=== PATIENT | female | born 1980 | race Caucasian/White ===

== ENCOUNTER 2017-12-16 08:26 | Emergency (ER) | payer SELFPAY ==
--- NOTE | 2017-12-16 09:48 | ULT ---
PELVIC ULTRASOUND: History: 37-year-old with left lower quadrant pain and bleeding after intercourse. Technique: Multiple longitudinal and transverse images of the pelvis were obtained using a multihertz curvilinear transabdominal as well as multihertz endovaginal transducers. Real-time, color flow, and spectral waveform doppler analysis was used to evaluate the pelvis. FINDINGS: The uterus is of normal contour, axis, and size measuring 8.3 x 4.0 x 6.9 cm. The endometrium is doub le wall thickness of approximately 8 mm. No evidence of uterine mass is seen. Both ovaries visualized with good blood flow. Right ovary measures 4.0 x 3.2 x 2.0 cm and the left ov diego measures 1.9 x 2.8 x 1.5 cm. No evidence of pelvic masses or lesions seen. IMPRESSION: Normal pelvic ultrasound. POS: JOVI
[2017-12-16 10:06] LABS: Bilirubin Small (Negative); Blood, Urine Large (Negative); Clarity CLEAR (Clear); Glucose, Urine (Dipstick) Negative (Negative); Leukocyte Small (Negative); Nitrite Negative (Negative); Protein, Urine (Dipstick) 100 mg/dL (Neg-Trace); Specific Gravity, Urine 1.031 (1.002-1.036); pH, Urine 5.5 (5.0-9.0)
[2017-12-16 10:08] LABS: Bacteria/HPF None Seen HPF (None Seen); Hyaline Casts/LPF 0-3 HYALINE CAST LPF (0-3 Hyaline); RBC/HPF GREATER THAN 50-TNTC HPF (0-3); Squamous Epithelial None Seen HPF (0-3); WBC/HPF None Seen HPF (0-3)
[2017-12-16 10:12] LABS: Pregnancy Test - Urine (BHCG) Negative (Negative); Pregu Control Background? CLEAR/WHITE (CLR/WHITE); Pregu Control Bar Appear? YES (CONTROL BAR); Specific Gravity 1.031 (1.002-1.036)
== END 2017-12-16 14:20 | disposition home or self-care (01) ==
LOC: ERS 08:26
DX: N93.8 Other specified abnormal uterine and vaginal bleeding (principal)
CPT/HCPCS: 76856; 81003; 81015; 81025; 87480; 87491; 87510; 87591; 87660

== ENCOUNTER 2018-10-05 22:42 | Emergency (ER) | payer SELFPAY ==
[2018-10-06 00:02] LABS: Pregnancy Test - Urine (BHCG) Negative (Negative); Pregu Control Background? CLEAR/WHITE (CLR/WHITE); Pregu Control Bar Appear? YES (CONTROL BAR)
[2018-10-06 00:31] LABS: Mean Corpuscular HGB CONC 30.1 g/dL (32.0-36.0); Mean Corpuscular Hemoglobin 21.9 pg (27.0-31.0); Mean Corpuscular Volume 72.8 fL (78.0-98.0); Mean Platelet Volume 7.9 fL (7.4-10.4); Platelet Count 268 thou/uL (130-400); RBC Distribution Width 15.5 % (11.5-14.5); Red Blood Cell (RBC) Count 5.03 mill/uL (4.20-5.40)
[2018-10-06 00:37] LABS: #Basophils 0.1 thou/uL (0.0-0.2); #Eosinphils 0.1 thou/uL (0.0-0.7); #Lymphocytes 2.2 thou/uL (1.20-3.40); #Monocytes 0.8 thou/uL (0.11-0.59); #Neutrophils 5.8 thou/uL (1.40-6.50); %Basophils 1.3 % (0.0-1.0); %Eosinophils 1.4 % (0.0-10.0); %Lymphocytes 24.3 % (21.0-51.0); %Monocytes 8.4 % (0.0-10.0); %Neutrophils 64.6 % (42.0-75.0); Anisocytosis SLIGHT = 6-15 cells (100X) (0-5/hpf); MDiff Complete? YES; Microcytosis SLIGHT = 6-15 cells (100X) (0-5/hpf)
[2018-10-06 00:41] LABS: Bilirubin Negative (Negative); Blood, Urine Negative (Negative); Clarity Clear (Clear); Glucose, Urine (Dipstick) Negative (Negative); Leukocyte Negative (Negative); Nitrite Negative (Negative); Protein, Urine (Dipstick) Negative (Neg-Trace); Urobilinogen 0.2 mg/dL (0.2-1.0)
[2018-10-06] MEDS ORDERED: Ketorolac Tromethamine 30 MG/ML VIAL ONE (00:41)
[2018-10-06 00:46] LABS: ALT (SGPT) 12 U/L (8-55); AST (SGOT) 12 U/L (5-34); Albumin 3.9 g/dL (3.5-5.0); Alkaline Phosphatase 80 U/L (40-150); Anion Gap 13 mmol/L (10-20); BUN (Urea Nitrogen) 10 mg/dL (7.0-18.7); Bilirubin, Total 0.3 mg/dL (0.2-1.2); Calc. Creatinine Clearance 0 mL/min (70-130); Carbon Dioxide 24 mmol/L (22-29); Chloride 105 mmol/L (98-107); Estimated GFR-MDRD 83; Glucose 97 mg/dL (70-105); Potassium 3.9 mmol/L (3.5-5.1); Protein, Total 6.9 g/dL (6.0-8.3); Sodium 138 mmol/L (136-145)
--- NOTE | 2018-10-06 07:45 | CT ---
CT ABDOMEN AND PELVIS NONCONTRAST CT RENAL CALCULUS PROTOCOL: COMPARISON: No prior imaging comparison. INDICATION: Left back pain, urinary symptoms. FINDINGS: No urolithiasis or obstructive uropathy. The urinary bladder is decompressed limiting visualization. There is a moderate-sized left hemipelvic mass, likely arising from the left adnexa. This is incom pletely evaluated. There is limited evaluation of the solid abdominal organs, bowel, lymph nodes, an d vascular on the basis of noncontrast technique. There is no free air or significant ascites. Ther e is trace free pelvic fluid. Visualized lung bases are clear. No acute osseous pathology is visual ized. IMPRESSION: 1. No urolithiasis or obstructive uropathy. 2. Moderate-sized left hemipelvic mass which may arise from the left adnexa, incompletely assessed. Given left-sided pain, this may be further assessed with pelvic ultrasound as necessary. Telephone call with findings placed to the ER physician at the time of dictation 0008 hours, 9. CODE CR
--- NOTE | 2018-10-06 08:20 | ULT ---
PELVIC ULTRASOUND WITH SANTIZO SCALE AND DOPPLER COLOR FLOW IMAGING TRANSABDOMINAL AND TRANSVAGINAL PELVIC ULTRASOUND PERFORMED: INDICATION: Low back pain. Left adnexal mass. FINDINGS: Doppler evaluation is performed which reveals flow to each ovary. There is no focal uterine patholog y. Endometrium measures 1 cm, which is within normal limits for a premenopausal patient. Correlate clinically in this regard. Within the left adnexa, there is a focus of complex echotexture measuring approximately 2.3 cm in hina meter relative to the finding on preceding CT within the left pelvis. No significant internal flow. There is no free pelvic fluid identified. IMPRESSION: 1. Findings most consistent with a mildly complex left adnexal cyst. Recommend 6-week followup pelv ic ultrasound to confirm expected, physiologic resolution. 2. Otherwise, no significant pathology of the pelvis. CODE T POS: FELY
== END 2018-10-06 01:50 | disposition home or self-care (01) ==
LOC: SCSER 22:42
DX: N83.202 Unspecified ovarian cyst, left side (principal); F31.9 Bipolar disorder, unspecified
CPT/HCPCS: 74176; 76856; 80053; 81003; 81025; 85025; 93976; 96372; J1885

== ENCOUNTER 2019-01-06 13:35 | Emergency (ER) | payer MEDICAID, SELFPAY ==
[2019-01-06] MEDS ORDERED: Ketorolac Tromethamine 30 MG/ML VIAL ONE (14:03)
[2019-01-06 14:06] LABS: Bilirubin Negative (Negative); Blood, Urine Negative (Negative); Clarity Clear (Clear); Glucose, Urine (Dipstick) Negative (Negative); Leukocyte Negative (Negative); Nitrite Negative (Negative); Protein, Urine (Dipstick) Trace mg/dL (Neg-Trace)
[2019-01-06 14:07] LABS: Pregnancy Test - Urine (BHCG) Negative (Negative); Pregu Control Background? CLEAR/WHITE (CLR/WHITE); Pregu Control Bar Appear? YES (CONTROL BAR); Specific Gravity 1.026 (1.002-1.036); Specific Gravity, Urine 1.026 (1.002-1.036)
[2019-01-06 14:27] LABS: Hemoglobin 10.1 g/dL (12.0-16.0); Mean Corpuscular HGB CONC 30.4 g/dL (32.0-36.0); Mean Corpuscular Hemoglobin 22.1 pg (27.0-31.0); Mean Corpuscular Volume 72.7 fL (78.0-98.0); Mean Platelet Volume 6.8 fL (7.4-10.4); Platelet Count 354 thou/uL (130-400); RBC Distribution Width 15.7 % (11.5-14.5); Red Blood Cell (RBC) Count 4.55 mill/uL (4.20-5.40); White Blood Cell (WBC) Count 8.7 thou/uL (4.8-10.8)
[2019-01-06 14:37] LABS: #Basophils 0.1 thou/uL (0.0-0.2); #Eosinphils 0.1 thou/uL (0.0-0.7); #Lymphocytes 1.8 thou/uL (1.20-3.40); #Monocytes 0.5 thou/uL (0.11-0.59); #Neutrophils 6.2 thou/uL (1.40-6.50); %Lymphocytes 21.3 % (21.0-51.0); %Monocytes 5.3 % (0.0-10.0); %Neutrophils 71.4 % (42.0-75.0); Anisocytosis SLIGHT = 6-15 cells (100X) (0-5/hpf); Elliptocytes SLIGHT = 2-5 cells (100X) (0-1/hpf); Hypochromia SLIGHT = 6-15 cells (100X) (0-5/hpf); MDiff Complete? YES; Microcytosis SLIGHT = 6-15 cells (100X) (0-5/hpf); Ovalocytes SLIGHT = 2-5 cells (100X) (0-1/hpf); Platelet Morphology Comment Appears Adequate; Polychromasia SLIGHT = 2-3 cells (100X) (0-2/hpf); Stomatocytes SLIGHT = 2-5 cells (100X) (0-1/hpf)
[2019-01-06 14:41] LABS: ALT (SGPT) 23 U/L (8-55); AST (SGOT) 16 U/L (5-34); Albumin 4.2 g/dL (3.5-5.0); Alkaline Phosphatase 79 U/L (40-150); Anion Gap 13 mmol/L (10-20); BUN (Urea Nitrogen) 13 mg/dL (7.0-18.7); Bilirubin, Total 0.4 mg/dL (0.2-1.2); Calc. Creatinine Clearance 0 mL/min (70-130); Calcium 9.3 mg/dL (7.8-10.44); Carbon Dioxide 24 mmol/L (22-29); Chloride 104 mmol/L (98-107); Estimated GFR-MDRD 76; Globulin 2.8 g/dL (2.4-3.5); Glucose 98 mg/dL (70-105); Potassium 3.7 mmol/L (3.5-5.1); Sodium 137 mmol/L (136-145)
--- NOTE | 2019-01-06 15:34 | CT ---
CT Abdomen Pelvis WO Con HISTORY:Left-sided abdomen pain. UTI symptoms. COMPARISON: 10/05/2018 exams. FINDINGS: The lung bases are clear of infiltrates. The liver spleen pancreas and gallbladder regions appear unremarkable. Right and left adrenal glands and right and left kidneys are normal in size. No obstruction. No renal calculi. No significant periaortic lymphadenopathy, there is mild mesenteric lymphadenopathy noted. This is similar to the prior examination. CT of pelvis performed without contrast enhancement: Follicles are seen involving the adnexal region. The cyst involving the left ovary has decreased in size, now measures approximately 2 cm. Endometrium is slightly thickened no evidence of any free fluid. IMPRESSION: 1. Mildly prominent mesenteric nodes, this is a similar appearance to the prior exam and could indica te adenitis. 2. No renal or ureteral calculi.
== END 2019-01-06 15:50 | disposition home or self-care (01) ==
LOC: SCSER 13:35
DX: R07.81 Pleurodynia (principal); F31.9 Bipolar disorder, unspecified
CPT/HCPCS: 74176; 80053; 81003; 81025; 85025; 96361; 96374; J1885

== ENCOUNTER 2019-01-19 21:32 | Emergency (ER) | payer SELFPAY ==
[2019-01-19] MEDS ORDERED: Ketorolac Tromethamine 60 MG/2 ML VIAL ONE (22:30)
== END 2019-01-19 22:58 | disposition home or self-care (01) ==
LOC: SCSER 21:32
DX: L03.116 Cellulitis of left lower limb (principal); B35.3 Tinea pedis; F31.9 Bipolar disorder, unspecified
CPT/HCPCS: 36416; 96372; J1885

== ENCOUNTER 2020-12-18 23:36 | Emergency (ER) | payer SELFPAY ==
[2020-12-19 00:53] LABS: #Basophils 0.1 thou/uL (0.0-0.2); #Eosinphils 0.2 thou/uL (0.0-0.7); #Lymphocytes 2.9 thou/uL (1.20-3.40); #Monocytes 0.9 thou/uL (0.11-0.59); #Neutrophils 6.3 thou/uL (1.40-6.50); %Basophils 0.7 % (0.0-1.0); %Eosinophils 2.1 % (0.0-10.0); %Lymphocytes 27.8 % (21.0-51.0); %Monocytes 8.5 % (0.0-10.0); Hemoglobin 15.1 g/dL (12.0-16.0); Mean Corpuscular HGB CONC 33.5 g/dL (32.0-36.0); Mean Corpuscular Hemoglobin 31.1 pg (27.0-31.0); Mean Corpuscular Volume 92.7 fL (78.0-98.0); Mean Platelet Volume 8.3 fL (7.4-10.4); Platelet Count 253 thou/uL (130-400); RBC Distribution Width 11.9 % (11.5-14.5); Red Blood Cell (RBC) Count 4.86 mill/uL (4.20-5.40); White Blood Cell (WBC) Count 10.3 thou/uL (4.8-10.8)
[2020-12-19 01:09] LABS: ALT (SGPT) 44 U/L (8-55); AST (SGOT) 27 U/L (5-34); Alkaline Phosphatase 88 U/L (40-110); Anion Gap 16 mmol/L (10-20); BUN (Urea Nitrogen) 11 mg/dL (7.0-18.7); Bilirubin, Total 0.7 mg/dL (0.2-1.2); Calc. Creatinine Clearance 0 mL/min (70-130); Calcium 8.7 mg/dL (7.8-10.44); Carbon Dioxide 20 mmol/L (22-29); Chloride 104 mmol/L (98-107); Globulin 3.4 g/dL (2.4-3.5); Glucose 87 mg/dL (70-105); Protein, Total 7.4 g/dL (6.0-8.3); Sodium 136 mmol/L (136-145)
[2020-12-19] MEDS ORDERED: Ibuprofen 200 MG TAB ONE (01:42)
[2020-12-19] MEDS ORDERED: Amoxicillin/Potassium Clav 875 MG TAB ONE (01:42)
== END 2020-12-19 02:13 | disposition home or self-care (01) ==
LOC: ERS 23:36
DX: K04.7 Periapical abscess without sinus (principal)
CPT/HCPCS: 36415; 80053; 85025; 99283